=== PATIENT | female | born 1985 | race Caucasian/White ===

== ENCOUNTER 2016-10-18 07:01 | Day surgery (SDC) | payer BC ==
--- NOTE | ~2016-10-18 | OP ---
Record Of [facility] [address] [place]. [address] NAME: YVETTE KENNEDY : 85 STATUS : [facility]#: [id number] AGE: 31 ADM/REG DATE : 10/18/16 MR#: [id number] REPORT SERV DATE: 11/21/16 DICTATED BY: TAMIKA WADE DATE: 11/20/16 REPORT STATUS : Draft TRANSCRIBED BY: MODL DATE: 11/20/16 DATE OF PROCEDURE: 10/18/2016 PREOPERATIVE DIAGNOSES: 1. Left chronic maxillary sinusitis. 2. Left chronic ethmoid sinusitis. 3. Left chronic frontal sinusitis. POSTOPERATIVE DIAGNOSES: 1. Left chronic maxillary sinusitis. 2. Left chronic ethmoid sinusitis. 3. Left chronic frontal sinusitis. PROCEDURE: 1. Left endoscopic total ethmoidectomy. 2. Left endoscopic frontal sinusotomy. 3. Left endoscopic middle meatus antrostomy. SURGEON: Tamika Wade M.D. ANESTHESIA: General. COMPLICATIONS: None. COUNTS: All counts correct following the procedure. ESTIMATED BLOOD LOSS: 10 mL. PREOPERATIVE INFORMED CONSENT: We discussed risks and benefits of surgery including, but not limited to bleeding, infection, possible CSF leak, possible ocular injury including blindness, possible persistent sinus disease, despite surgery possible need for revision surgery. She understands the risks and benefits of surgery and consent is on chart. PROCEDURE IN DETAIL: The patient was brought to the operating suite, placed on operative room in supine position. General endotracheal anesthesia was initiated without incident. The patient's head and neck was cleaned, prepped, and draped in the usual sterile fashion. Following this, the left nasal cavity, the inferior middle turbinate and uncinate processes were injected with 1% lidocaine with 1:100,000 epinephrine for hemostasis. Using a zero- degree endoscope and the Acclarent frontal sinus introducer and using the transillumination technique, the transilluminated wire was carefully advanced across the nasal frontal duct and once the wire was in place and placement was confirmed, the balloon was advanced over the wire and dilated up to 10 atmospheres along the length of the nasofrontal duct. Attention was taken to the uncinate. The lower portion of the uncinate was taken down using pediatric backbiting forceps. The remainder of the uncinate process was taken down using the Xomed sinus shaver. The natural Record Of [facility] [address] [place]. [address] NAME: YVETTE KENNEDY : 85 STATUS : [facility]#: [id number] AGE: 31 ADM/REG DATE : 10/18/16 MR#: [id number] REPORT SERV DATE: 11/21/16 DICTATED BY: TAMIKA WADE DATE: 11/20/16 REPORT STATUS : Draft TRANSCRIBED BY: AQUILES DATE: 11/20/16 maxillary sinus ostium was enlarged using straight and backbiting Nasir-Cut forceps and then the ethmoid bulla was opened widely using the Xomed sinus shaver. Then, the basal lamella of the middle turbinate was penetrated using the Xomed sinus shaver and then working from a posterior and anterior fashion along the lamina papyracea, the posterior and anterior ethmoid air cells were marsupialized. There was minimal bleeding. The bleeding was controlled using topical Adrenalin on pledgets. The patient was then awakened from anesthesia and taken to recovery room in stable condition. RUTHANN/AQUILES Tamika Wade M.D. / [id number] CC: Freida Feliz M.D.
[~2016-10-18 07:01] MED LIST: ALLEGRA180 PO; BACTRIM DS1 TAB PO; BIOTIN5 MG PO; FLONASE NAS; MULTIPLE VIT PO; NAP500 PO; ORTHO EVRA TOP; SINGULAIR1 PO; VALTREX5 PO
== END 2016-10-18 23:59 | disposition home or self-care (01) ==
LOC: MSC 07:01
PROVIDERS: Otolaryngology
PROC: 099R4ZZ Drainage of Left Maxillary Sinus, Percutaneous Endoscopic Approach (ICD-10-PCS; 2016-10-18)
PROC: 09TV4ZZ Resection of Left Ethmoid Sinus, Percutaneous Endoscopic Approach (ICD-10-PCS; principal; 2016-10-18 08:30)
PROC: 099T4ZZ Drainage of Left Frontal Sinus, Percutaneous Endoscopic Approach (ICD-10-PCS; 2016-10-18 08:30)
DX: J32.0 Chronic maxillary sinusitis (principal); J32.2 Chronic ethmoidal sinusitis; J32.1 Chronic frontal sinusitis; T75.3XXA Motion sickness, initial encounter; K44.9 Diaphragmatic hernia without obstruction or gangrene; Z98.890 Other specified postprocedural states; F32.9 Major depressive disorder, single episode, unspecified; F53 Mental and behavioral disorders associated with the puerperium, not elsewhere classified; B02.30 Zoster ocular disease, unspecified; Z87.828 Personal history of other (healed) physical injury and trauma; Z88.1 Allergy status to other antibiotic agents; Z88.5 Allergy status to narcotic agent; Z79.899 Other long term (current) drug therapy; Z79.51 Long term (current) use of inhaled steroids
CPT/HCPCS: 84703; 88305; A9270-GY; C1726; J0690; J0735; J2250; J2405; J2710; J3010